=== PATIENT | male | born 1995 | race Caucasian/White ===

== ENCOUNTER 2020-03-24 10:11 | Emergency (ER) | payer MEDICAID, SELFPAY ==
[2020-03-24 10:24] VITALS: BP 145/85; PULSE 71; RESP 18; TEMP 36.6; O2SAT 98; BMI 25.8
--- NOTE | 2020-03-24 10:33 | HMH.EDUTC ---
[facility] Disposition Clinical Impression: Dental abscess Disposition: Home, Self-Care Condition on Discharge: Good Instructions: Tooth Abscess, DI for Tooth Abscess Additional Instructions: Take the medications as directed. You have to follow up with a dentist. You [facility] check with [facility] since you live in [place]. Their phone number is . Take ibuprofen for pain. I sent in a prescription for Ibuprofen 800 mg tablets. Follow up with your primary care doctor. GO TO THE ER FOR ANY WORSENING SYMPTOMS OR CONCERNS Prescriptions: Ibuprofen [Ibuprofen 800mg Tablet] 800 mg PO Q8HP PRN #30 tab PRN Reason: Moderate Pain Transmission Status: Pending to [facility] #[id number] Amoxicillin/Potassium Clav [Augmentin 875-125 Tablet] 1 tab PO Q12H 10 Days #20 tab Transmission Status: Pending to [facility] #[id number] Referrals: PCP,No [Primary Care Provider] - Time of Disposition: 10:35 Medical Decision Making - Medical Records Medical records reviewed: No: I reviewed the patient's medical records. - Reid Inquiry Pt receiving controlled substance: No Vital Signs: 03/24/20 10:24 Temperature 97.8 F Temperature Source Oral Pulse Rate [Right Brachial] 71 Respiratory Rate 18 Blood Pressure [Right Arm] 145/85 H Blood Pressure Mean [Right Arm] 105 Blood Pressure Source [Right Arm] Automatic Cuff Blood Pressure Position [Right Arm] Sitting 02 Sat by Pulse Oximetry 98 Oxygen Delivery Method Room Air [facility] HPI - General Stated complaint: bottom left tooth pain Time Seen by Provider: 03/24/20 10:33 Mode of Arrival: Ambulatory Source of Information: Patient Limitations: No Limitations Description of Symptoms (Recalled from Triage Doc. by RN): PATIENT C/O DENTAL PAIN X 2 DAYS HEENT Symptoms (Recalled from RN notes): Yes Resp Symptoms (Recalled from RN notes): No Skin Symptoms (Recalled from RN notes): No MS Symptoms (Recalled from RN notes): No Functional Status (Recalled from RN notes): WNL - History of Present Illness Provider Complaint: He c/o dental pain for the past week at least. He has a very badly decayed tooth in his left lower jaw. He has a dentist but he cannot get into see them yet. - Related Data Previous Rx's Medication Instructions Recorded Amoxicillin/Potassium Clav 1 tab PO Q12H 10 Days #20 tab 03/24/20 [Augmentin 875-125 Tablet] Ibuprofen [Ibuprofen 800mg 800 mg PO Q8HP PRN #30 tab 03/24/20 Tablet] Allergies Allergy/AdvReac Type Severity Reaction Status Date / Time No Known Allergies Allergy Verified 03/24/20 10:26 - Worker's Comp Is this a Worker's Comp case?: No [facility] History - Hepatitis A Screen Drug use history?: No High risk sexual behaviors?: No History of sexually transmitted infection?: No Currently employed?: No Childcare worker?: No Do you have indoor plumbing?: Yes Do you have electricity?: Yes Attestation statement:: This patient has been screened for Hepatitis A risk factors. I have reviewed the patient's past medical history: Yes Laterality Cases: Bilateral: Myringotomy (Ear Tubes) - Social History Smoking Status: Current every day smoker Tobacco Type: e-cigarettes # Packs/Day (cigarettes): 1 Alcohol Intake: never Alcohol Intake Frequency:: holidays/special occasions only Occupational Status: other Household Members: family ROS Obtained: Yes All systems reviewed & no additional complaints - Constitutional Constitutional: Denies chills, Denies fever(s) - Eyes Eyes: Denies change in vision, Denies eye discharge - ENT Ears, Nose, Mouth, and Throat: Reports as per HPI - Cardiovascular Cardiovascular: Denies chest pain - Respiratory Respiratory: No chest congestion, No cough Physical Exam - General General appearance: alert, in no apparent distress - Head Head exam: atraumatic, normocephalic, normal inspection - Eye Eye exam: Present: normal appearance, PERRL, EOMI
[2020-03-24 10:40] VITALS: BP 145/85; PULSE 71; RESP 18; TEMP 36.6; O2SAT 98
== END 2020-03-24 10:45 | disposition home or self-care (01) ==
PROVIDERS: Emergency Provider Nurse Practitioner Family
DX: K04.7 Periapical abscess without sinus (principal); F17.290 Nicotine dependence, other tobacco product, uncomplicated
CPT/HCPCS: 99201

== ENCOUNTER 2020-03-30 11:26 | Emergency (ER) | payer MEDICAID, SELFPAY ==
[2020-03-30 11:30] VITALS: BP 130/78; PULSE 76; RESP 19; TEMP 36.8; O2SAT 99; BMI 25.8
--- NOTE | 2020-03-30 12:00 | HMH.EDUTC ---
[facility] Disposition Clinical Impression: Encounter for laboratory testing for COVID-19 virus Disposition: Home, Self-Care Condition on Discharge: Good Instructions: DI for COVID-19 (Suspected or Confirmed ), Coronavirus Disease 2019, COVID-19: Testing and Tracing, Preventing the Spread of Coronavirus Discharge Instructions Additional Instructions: *Monitor Temp, Over the counter Motrin or Tylenol as directed/as needed Tylenol every 4 hours and Motrin every 6 hours (as long as your family doctor has told you that you can take it) for fever or pain. and straight to ER if unable to lower temp less than 101.0 after medication given *Warm salt water gargles may help to soothe the throat *Throat Lozenges *Warm fluids like tea with honey may help to soothe the throat *Sleep elevated *Humidifier/Vaporizer Follow up IMMEDIATELY for new or worsening symptoms or no Noticeable improvement over the next 48-72 hours. 911 for difficulty breathing or swallowing You were tested for today for COVID19 your test result should be back in the next 24-48 hours, you may call to the [facility] to see if your test results are back in the next 48 hours [phone] [facility] hours are 9am-9pm You was given a handout with instructions for Self Quarantine and Self isolation for while you wait on test results and what to do if they are positive If you are positive the Health Dept will be contacting you also Referrals: PCP,No [Primary Care Provider] - As needed Forms: Work/School Release Time of Disposition: 12:05 Medical Decision Making - Reid Inquiry Pt receiving controlled substance: No Reid was queried for this patient: No Vital Signs: 03/30/20 11:30 Temperature 98.2 F Temperature Source Oral Pulse Rate [Right Brachial] 76 Respiratory Rate 19 Blood Pressure [Right Arm] 130/78 Blood Pressure Mean [Right Arm] 95 Blood Pressure Source [Right Arm] Automatic Cuff Blood Pressure Position [Right Arm] Sitting 02 Sat by Pulse Oximetry 99 Oxygen Delivery Method Room Air Orders (Tests/Meds): ORDERS Category Date Time Status Covid-19 Nasal PCR Sendout [facility] Stat Lab 03/30/20 11:31 Ordered [facility] HPI - General Stated complaint: loss of smell and taste Time Seen by Provider: 03/30/20 12:00 Mode of Arrival: Ambulatory Source of Information: Patient Limitations: No Limitations Description of Symptoms (Recalled from Triage Doc. by RN): PATIENT REQUESTING COVID TEST; C/O LOSS OF TASTE AND SMELL HEENT Symptoms (Recalled from RN notes): Yes Resp Symptoms (Recalled from RN notes): No Skin Symptoms (Recalled from RN notes): No MS Symptoms (Recalled from RN notes): No Functional Status (Recalled from RN notes): WNL - History of Present Illness Provider Complaint: Patient states that he recently loss his sense of taste and smell States that he felt like he had a sinus infection a couple days ago and yesterday noticed that he was unable to smell or taste anything so today he was still unable to taste and smell so he come in to get tested - Related Data Previous Rx's Medication Instructions Recorded Amoxicillin/Potassium Clav 1 tab PO Q12H 10 Days #20 tab 03/24/20 [Augmentin 875-125 Tablet] Ibuprofen [Ibuprofen 800mg 800 mg PO Q8HP PRN #30 tab 03/24/20 Tablet] Allergies Allergy/AdvReac Type Severity Reaction Status Date / Time No Known Allergies Allergy Verified 03/24/20 10:26 - Worker's Comp Is this a Worker's Comp case?: No [facility] History - Hepatitis A Screen Drug use history?: No High risk sexual behaviors?: No History of sexually transmitted infection?: No Currently employed?: No Childcare worker?: No Do you have indoor plumbing?: Yes Do you have electricity?: Yes Attestation statement:: This patient has been screened for Hepatitis A risk factors. I have reviewed the patient's past medical history: Yes Laterality Cases: Bilateral: Myringotomy (Ear Tubes) - Social History Smoking Status: Current every day smoke
[2020-03-30 12:08] VITALS: BP 130/78; PULSE 76; RESP 19; TEMP 36.8; O2SAT 99
[2020-03-31 10:19] LABS: Covid-19 Nasal PCR Sendout P&C Positive
--- NOTE | 2020-04-01 12:38 | PC.NURSE ---
notified pt of positive results
== END 2020-03-30 12:10 | disposition home or self-care (01) ==
PROVIDERS: Emergency Provider Nurse Practitioner
DX: U07.1 COVID-19 (principal); F17.290 Nicotine dependence, other tobacco product, uncomplicated
CPT/HCPCS: 99201; U0004

== ENCOUNTER 2022-05-13 20:42 | Emergency (ER) | payer MEDICAID, SELFPAY ==
[2022-05-13 20:43] VITALS: BP 145/84; PULSE 101; RESP 16; TEMP 36.8; O2SAT 97; BMI 28.4
[2022-05-13 21:00] LABS: Basophils # 0.1 K/mm3 (0-0.2); Basophils % 0.9 % (0.1-2.0); Eosinophils # 0.2 K/mm3 (0.0-0.4); Eosinophils % 2.6 % (0.1-12.0); Hematocrit 49.2 % (42.0-52.0); Hemoglobin 16.5 g/dL (14.1-18.0); Lymphocytes # 1.6 K/mm3 (0.7-4.5); Lymphocytes % 18.9 % (10-50); Mean Corpuscular HGB Conc 33.6 g/dL (31.8-35.4); Mean Corpuscular Hemoglobin 31.2 pg (27.0-31.2); Mean Corpuscular Volume 92.9 fl (80-94); Mean Platelet Volume 8.7 fl (7.4-10.4); Monocytes # 0.2 K/mm3 (0.1-1.0); Monocytes % 2.5 % (1.7-9.3); Neutrophils # 6.3 K/mm3 (1.8-7.8); Platelet Count 243 K/mm3 (142-424); White Blood Count 8.4 K/mm3 (4.8-10.8)
[2022-05-13 21:09] LABS: Alanine Aminotransferase 28 U/L (12-78); Albumin Level 4.6 g/dl (3.5-5.0); Albumin/Globulin Ratio 1.5 (1.1-1.8); Alkaline Phosphatase 125 U/L (38-126); Anion Gap 9.4 mEq/L (5-15); Aspartate Amino Transferase 29 U/L (17-59); Bilirubin,Total 0.5 mg/dl (0.2-1.3); Blood Urea Nitrogen 17 mg/dl (9-20); Calcium 8.7 mg/dl (8.4-10.2); Carbon Dioxide 27 mmol/L (22.0-30.0); Chloride 105 mmol/L (98-107); Creatinine Clearance Estimated 192 mL/min (50-200); Estimated Glomerular Filt Rate 102 ml/min (>60); GFR (African American) 123 ML/MIN (>60); Glucose 213 mg/dl (74-100); Potassium 3.4 mmoL/L (3.5-5.1); Sodium 138 mmol/L (136-145); Total Protein,Serum 7.6 g/dl (6.3-8.2)
--- NOTE | 2022-05-13 22:27 | HMH.EDWNDL ---
Discharge Plan Disposition Patient Disposition: Home, Self-Care Prescriptions Prescriptions: New sulfamethoxazole-trimethoprim [Bactrim DS] 800-160 mg Tablet 1 tab PO Q12H Qty: 14 0RF cephalexin [cephalexin] 500 mg capsule 500 mg PO TID Qty: 30 0RF No Action amoxicillin-pot clavulanate 1 EACH tablet 1 tab PO Q12H 10 Days Qty: 20 0RF ibuprofen 800 MG tablet 800 mg PO Q8HP PRN (Reason: Moderate Pain) Qty: 30 0RF Referrals Follow up/Referrals: Provider,Referral, MD [Primary Care Provider] - See instructions Norma Alcaraz DPM [Staff Physician] - See instructions Clinical Impressions Clinical Impression: Cellulitis, OC (onychocryptosis) Instructions Patient Instructions: Cellulitis, DI for Ingrown Toenail Discharge ED Provider: Mukesh (ED)Dallin Wound/Laceration HPI General Chief Complaint: Wound/Laceration Stated Complaint: Left big toe infected Time Seen by Provider: 05/13/22 22:27 Mode of Arrival: Ambulatory Source of Information: Patient and Medical Record Limitations: No Limitations Description of Symptoms (Recalled from ER Triage Doc. by RN): pt to ED with redness and swelling in his left great toe x 3 weeks. pt denies any fevers, aches or chills. History of Present Illness HPI narrative: infection lt great toe over the last few weeks - pt is not diabetic - Onset (ago): week(s) Extremity Location: Left: foot Place: home Associated symptoms: none Related Data Previous Rx's Medication Instructions Recorded amoxicillin 875 mg-potassium 1 tab PO Q12H 10 days #20 tabs 03/24/20 clavulanate 125 mg tablet ibuprofen 800 mg tablet 800 mg PO Q8HP PRN Moderate Pain 03/24/20 #30 tabs cephalexin 500 mg capsule 500 mg PO TID #30 caps 05/13/22 sulfamethoxazole 800 1 tab PO Q12H #14 tabs 05/13/22 mg-trimethoprim 160 mg tablet (Bactrim DS) Allergies Allergy/AdvReac Type Severity Reaction Status Date / Time No Known Allergies Allergy Verified 03/24/20 10:26 PFS PFS Disclaimer: The information contained in this section may have been updated after the patient was seen, as this information can be updated by other users. Social History Smoking Status: Light tobacco smoker tobacco type: e-cigarettes alcohol intake: never current occupational status: other Travel in the last 8 weeks: None household members: family ROS Obtained: Yes All systems reviewed & no additional complaints except as documented Physical Exam General General appearance: alert Head Head exam: normocephalic Eye Eye exam: Present PERRL and EOMI ENT ENT exam: Present mucous membranes moist Neck Neck exam: Present trachea midline Respiratory Respiratory exam: Absent respiratory distress Cardiovascular Cardiovascular exam: Present regular rate Expanded Lower Extremity Exam Left: Foot/toe exam: Present tenderness and other (has infected lt great toe consistent with ingrown toe nail) Neurovascular/Tendon exam: Present pulse deficit Neurological Exam Neurological exam: Present alert, oriented X3 and CN II-XII intact Psychiatric Psychiatric exam: Present normal affect Skin Skin exam: Present other (lt great toe has infected ingrown toe nail); Absent rash Medical Decision Making Medical Records Medical records reviewed: Yes I reviewed the patient's medical records. Reid Inquiry Pt receiving controlled substance: No Vital Signs: 05/13/22 20:43 Temperature 98.2 F Temperature Source Oral Pulse Rate [Left Radial] 101 H Respiratory Rate 16 Blood Pressure [Right Arm] 145/84 H Blood Pressure Mean [Right Arm] 104 Blood Pressure Source [Right Arm] Automatic Cuff Blood Pressure Position [Right Arm] Sitting 02 Sat by Pulse Oximetry 97 Oxygen Delivery Method Room Air Lab Data Lab results reviewed: Yes I reviewed the patient's lab results. Lab Results 05/13/22 20:50: WBC 8.4, RBC 5.30, Hgb 16.5, Hct 49.2, MCV 92.9, MCH 31.2, MCHC 33.6, RDW 13.0, Plt Count 243, MP
[2022-05-13 22:47] LABS: Hemoglobin A1C 5.1 % (4.0-6.0)
--- NOTE | 2022-05-13 22:52 | PC.NURSE ---
called pt to give A1C results.
[2022-05-13 22:53] VITALS: BP 135/80; PULSE 81; RESP 18; TEMP 36.7; O2SAT 98
== END 2022-05-13 22:55 | disposition home or self-care (01) ==
PROVIDERS: Emergency Provider Emergency Medicine
DX: L03.032 Cellulitis of left toe (principal); L60.2 Onychogryphosis; F17.299 Nicotine dependence, other tobacco product, with unspecified nicotine-induced disorders
CPT/HCPCS: 80053; 83036; 85025; 99284

== ENCOUNTER → 2022-05-14 23:40 | Outpatient (CLI) | payer MEDICAID, SELFPAY | PROVIDERS: PCP Nurse Practitioner Family; Visit Provider Nurse Practitioner Family | DX: L03.031 Cellulitis of right toe (principal); L03.90 Cellulitis, unspecified; B95.7 Other staphylococcus as the cause of diseases classified elsewhere | CPT/HCPCS: 87070; 87077; 87186; 87205 ==

== ENCOUNTER → 2022-06-18 13:21 | Outpatient (CLI) | payer MEDICAID, SELFPAY ==
--- NOTE | 2022-06-18 13:30 | XR_ITS ---
FINAL REPORT CLINICAL HISTORY: hx of pneumothorax FINDINGS: 2 views of the chest were obtained . The heart is normal in size. The mediastinum is within normal limits. The lungs are clear. There is no pneumothorax. Osseous structures are unremarkable. IMPRESSION: No acute cardiopulmonary process. Reviewed, Interpreted and Dictated by Willi Mayer MD Transcribed by Merary Bateman Authenticated and [facility]
== END ==
PROVIDERS: PCP Family Medicine; Visit Provider Family Medicine
DX: Z87.09 Personal history of other diseases of the respiratory system (principal)
CPT/HCPCS: 71046

== ENCOUNTER 2022-07-17 19:09 | Emergency (ER) | payer MEDICAID, SELFPAY ==
--- NOTE | 2022-07-17 19:05 | ECG_ITS ---
APPROVED REPORT Exam: Resting ECG HR:89 bpm ECG Measurements Heart Rate 89 AXES OK 149 P 48 QRSd 92 QRS 73 QT 320 T 34 QTc 367 Conclusion SINUS RHYTHM NONSPECIFIC T-WAVE ABNORMALITY BORDERLINE ECG UNCONFIRMED REPORT Electronically signed by : Josué Fan MD 07/20/2022 14:32:00
[2022-07-17 19:10] VITALS: BP 148/89; PULSE 97; RESP 17; TEMP 36.5; O2SAT 99; BMI 29.6
--- NOTE | 2022-07-17 19:17 | CT_ITS ---
PROCEDURE INFORMATION: Exam: CTA Chest With Contrast Exam date and time: 07/17/2022 7:48 PM Age: 26 years old Clinical indication: Patient HX: Chest pressure, possible marfan's syndrome per patient. Patient stated insurance would not cover testing for marfan's. ; Additional info: Chest pain TECHNIQUE: Imaging protocol: Computed tomographic angiography of the chest with contrast. 3D rendering (Not supervised by radiologist): MIP and/or 3D reconstructed images were created by the technologist. Radiation optimization: All CT scans at this facility use at least one of these dose optimization techniques: automated exposure control; mA and/or kV adjustment per patient size (includes targeted exams where dose is matched to clinical indication); or iterative reconstruction. Contrast material: ISOVUE 370; Contrast volume: 70 ml; Contrast route: INTRAVENOUS (IV); REPORTING DATA: Count of CT and Cardiac NM exams in prior 12 months: This patient has received 0 known CTs and 0 known cardiac nuclear medicine studies in the 12 months prior to the current study. COMPARISON: CR XR CHEST 2V 18/06/2022 13:32 FINDINGS: Pulmonary arteries: Normal. No pulmonary emboli. Aorta: No aortic dissection. No aortic aneurysm. Renal arteries: Accessory right renal artery. Lungs: Unremarkable. No consolidation. No masses. Pleural spaces: Unremarkable. No pneumothorax. No pleural effusion. Heart: Unremarkable. No cardiomegaly. No pericardial effusion. Lymph nodes: Unremarkable. No enlarged lymph nodes. Bones/joints: Unremarkable. No acute fracture. Soft tissues: Unremarkable. IMPRESSION: No aortic dissection. No aortic aneurysm.
--- NOTE | 2022-07-17 19:17 | XR_ITS ---
PROCEDURE INFORMATION: Exam: XR Chest Exam date and time: 07/17/2022 7:53 PM Age: 26 years old Clinical indication: Pain; Chest pressure; Additional info: Chest pain TECHNIQUE: Imaging protocol: Radiologic exam of the chest. Views: 1 view. Portable upright chest x-ray. COMPARISON: 1. CT ANGIO CHEST PE PROTOCOL 07/17/2022 7:48 PM 2. CR CXR CHEST(2 VIEWS-NOT PORTABLE) 02/05/2016 2:47 AM FINDINGS: Lungs: No consolidation or lung nodules. Pleural spaces: No pleural effusion. No pneumothorax. Heart/Mediastinum: No abnormalities. No cardiomegaly. No pulmonary vascular congestion. Bones/joints: No fractures or bone lesions. IMPRESSION: No acute findings in the chest. No change since 02/05/2016.
[2022-07-17 19:30] LABS: Basophils % 0.2 % (0.1-2.0); Eosinophils # 0.2 K/mm3 (0.0-0.4); Eosinophils % 1.8 % (0.1-12.0); Hematocrit 48.9 % (42.0-52.0); Lymphocytes # 1.7 K/mm3 (0.7-4.5); Lymphocytes % 15.9 % (10-50); Mean Corpuscular HGB Conc 32.8 g/dL (31.8-35.4); Mean Corpuscular Volume 94.5 fl (80-94); Mean Platelet Volume 9.1 fl (7.4-10.4); Monocytes # 0.5 K/mm3 (0.1-1.0); Monocytes % 4.5 % (1.7-9.3); Neutrophils # 8.3 K/mm3 (1.8-7.8); Neutrophils % 77.6 % (37.0-80.0); Platelet Count 223 K/mm3 (142-424); Red Blood Count 5.17 M/mm3 (4.60-6.20); Red Cell Distribution Width 13.5 % (11.5-17.5); White Blood Count 10.7 K/mm3 (4.8-10.8)
--- NOTE | 2022-07-17 19:38 | PC.NURSE ---
PATIENT GONE TO RAD AT THIS TIME.
[2022-07-17 19:41] LABS: Anion Gap 11.4 mEq/L (5-15); Blood Urea Nitrogen 23 mg/dl (9-20); Calcium 8.8 mg/dl (8.4-10.2); Carbon Dioxide 26 mmol/L (22.0-30.0); Chloride 104 mmol/L (98-107); Creatinine Clearance Estimated 163 mL/min (50-200); Estimated Glomerular Filt Rate 81 ml/min (>60); GFR (African American) 98 ML/MIN (>60); Glucose 95 mg/dl (74-100); Potassium 3.4 mmoL/L (3.5-5.1); Sodium 138 mmol/L (136-145)
[2022-07-17 19:46] LABS: C-Reactive Protein 2.7 mg/L (0-4)
[2022-07-17 19:57] LABS: T4 (Thyroxine) 7.9 ug/dl (5.53-11.0)
[2022-07-17 20:11] LABS: Thyroid Stimulating Hormone 2.35 uIU/mL (0.465-4.68)
[2022-07-17 20:17] LABS: Troponin I < 0.01 ng/ml (0.00-0.034)
[2022-07-17 20:26] LABS: Erythrocyte Sedimentation Rate 2 mm/hr (0-15)
--- NOTE | 2022-07-17 22:08 | HMH.EDCP ---
Discharge Plan Disposition Patient Disposition: Home, Self-Care Chief Complaint: Chest Pain Prescriptions Prescriptions: No Action aripiprazole 15 mg tablet 15 mg PO DAILY venlafaxine 150 mg capsule,extended release 24hr 150 mg PO DAILY hydroxyzine HCl 25 mg tablet 25 mg PO HS Referrals Follow up/Referrals: Mariely Hernandez DO [Primary Care Provider] - See instructions Clinical Impressions Clinical Impression: Atypical chest pain Instructions Patient Instructions: DI for Atypical Chest Pain Discharge ED Provider: Mukesh (ED)Dallin Chest Pain HPI General Chief Complaint: Chest Pain Stated Complaint: chest pain Time Seen by Provider: 07/17/22 22:09 Mode of Arrival: Family Vehicle Source of Information: Patient and Medical Record Limitations: No Limitations Description of Symptoms (Recalled from ER Triage Doc. by RN): 26 yo male presents with cc of left anterior chest pain that began approximately 3 hours ago. 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 patient denies n/v/d. denies diaphoresis. States he became somewhat near-syncopal at one point. patient has a PMH of anxiety/depression. Drinks energy drinks daily. Is currently in the process of being diagnosed with marfan's syndrome however insurance is an issue History of Present Illness HPI narrative: onset of lt ant chest pain and felt dizzy and he before that was talking out of control w/o speech or visual sx - no other c/o - hx of possible marfans complaint: chest pain Onset (ago): hour(s) Duration: now resolved Activity at onset: during rest Pain location: left chest Severity: moderate Quality: aching Risk Factors for CAD: Family Hx of CAD Treatments prior to or on arrival for Cardiac Chest Pain: none LOREN Score for Non-Stemi Age of Patient: <30 years old Heart Rate: 70-89 bpm Systolic Blood Pressure: 140-159 mmHg Serum Creatinine: 0.80-1.19 mg/dl CHF [place] Class: I-No CHF Other Risk Factors: None Non-Stemi Risk Score: 40 Risk Stratification: 1-108 = Low Risk Related Data Home Medications Medication Instructions Recorded Confirmed aripiprazole 15 mg tablet 15 mg PO DAILY 06/18/22 06/18/22 hydroxyzine HCl 25 mg tablet 25 mg PO HS 03/20/23 03/20/23 venlafaxine 150 mg 150 mg PO DAILY 06/18/22 06/18/22 capsule,extended release 24 hr Allergies Allergy/AdvReac Type Severity Reaction Status Date / Time No Known Allergies Allergy Verified 06/18/22 12:54 [facility] Disclaimer: The information contained in this section may have been updated after the patient was seen, as this information can be updated by other users. Medical History (Updated 07/17/22 @ 23:01 by Dallin Mayorga (DENNY)MD) Lung collapse Surgical History (Updated 06/18/22 @ 12:58 by Nancy Cummings LPN) H/O tooth extraction History of lung surgery Family History (Updated 05/14/22 @ 14:51 by Olivia Bhatia CMA) Mother Anemia Asthma Thyroid disorder Father Alcoholism Substance abuse Grandfather Cancer Coronary artery disease Diabetes Hypertension Social History (Updated 06/18/22 @ 12:59 by Nancy Cummings LPN) Smoking Status: Never smoker years smoked: 10 alcohol intake: current substance use type: denies use current occupational status: employed Travel in the last 8 weeks: None household members: family ROS Obtained: Yes All systems reviewed & no additional complaints except as documented Physical Exam General General appearance: alert Head Head exam: normocephalic Eye Eye exam: Present PERRL and EOMI ENT ENT exam: Present mucous membranes moist Neck Neck exam: Present trachea midline Chest Chest inspection: Present normal inspection Respiratory Respiratory exam: Present normal lung sounds bilaterally Cardiovascular Cardiovascular exam: Present regular rate; Absent systolic murmur, rubs, gallop,
[2022-07-17 22:52] LABS: Troponin I < 0.01 ng/ml (0.00-0.034)
[2022-07-17 23:01] VITALS: BP 137/81; PULSE 81; PULSE 97; RESP 16; TEMP 36.5; O2SAT 99
== END 2022-07-17 23:02 | disposition home or self-care (01) ==
PROVIDERS: Emergency Provider Emergency Medicine; PCP Family Medicine
DX: R07.89 Other chest pain (principal); R42 Dizziness and giddiness
CPT/HCPCS: 71045; 71275; 80048; 84436; 84443; 84484; 85025; 85651; 86140; 93005; 99285; Q9967

== ENCOUNTER → 2023-01-09 15:18 | Outpatient (CLI) | payer MEDICAID, SELFPAY ==
--- NOTE | 2023-01-09 15:23 | XR_ITS ---
FINAL REPORT CLINICAL HISTORY: pain, swelling without injury FINDINGS: LEFT FOOT Three views of the left foot demonstrate a fracture of the second metatarsal diaphysis. The visualized joint spaces are normally aligned. The soft tissues are unremarkable. IMPRESSION: Fracture of the second metatarsal diaphysis. Reviewed, Interpreted and Dictated by Davis Grissom III, MD Transcribed by Merary Bateman Authenticated and [facility]
== END ==
PROVIDERS: Visit Provider Nurse Practitioner Family
DX: M79.672 Pain in left foot (principal); M79.89 Other specified soft tissue disorders
CPT/HCPCS: 73630

== ENCOUNTER → 2023-01-28 10:57 | Outpatient (CLI) | payer MEDICAID, SELFPAY ==
--- NOTE | 2023-01-28 11:04 | XR_ITS ---
FINAL REPORT CLINICAL HISTORY: Left foot 2nd met FX COMPARISON: 01/09/2023 FINDINGS: LEFT FOOT: Three views of the left foot were obtained. There is a subacute fracture of the second metatarsal diaphysis with callus formation since prior exam. There is no acute fracture or dislocation. The joint spaces are intact. There is no soft tissue abnormality. IMPRESSION: No acute bony abnormality. Second metatarsal diaphysis fracture with evidence of healing. Reviewed, Interpreted and Dictated by Davis Grissom III, MD Transcribed by Elvira Lawson Authenticated and . [facility]
== END ==
PROVIDERS: PCP Emergency Medicine; Visit Provider Nurse Practitioner Family
DX: M79.672 Pain in left foot (principal)
CPT/HCPCS: 73630

== ENCOUNTER → 2023-02-11 10:04 | Outpatient (CLI) | payer MEDICAID, SELFPAY ==
--- NOTE | 2023-02-11 10:11 | XR_ITS ---
FINAL REPORT CLINICAL HISTORY: fracture follow up COMPARISON: 01/28/2023 FINDINGS: LEFT FOOT Three views of the left foot demonstrate a healing fracture of the distal second metatarsal. Fracture line is visible. No new fractures identified. Soft tissues are unremarkable. IMPRESSION: Healing fracture of the distal second metatarsal. Reviewed, Interpreted and Dictated by Willi Mayer MD Transcribed by Merary Bateman Authenticated and [facility]
== END ==
PROVIDERS: PCP Emergency Medicine; Visit Provider Podiatrist
DX: M79.89 Other specified soft tissue disorders (principal); S92.302A Fracture of unspecified metatarsal bone(s), left foot, initial encounter for closed fracture
CPT/HCPCS: 73630

== ENCOUNTER → 2023-03-04 09:58 | Outpatient (CLI) | payer MEDICAID, SELFPAY ==
--- NOTE | 2023-03-04 10:02 | XR_ITS ---
FINAL REPORT CLINICAL HISTORY: foot pain, fracture of 2nd met COMPARISON: 02/11/2023 FINDINGS: LEFT FOOT: Three views of the left foot were obtained. There is a subacute fracture of the second metatarsal diaphysis. There is increased callus formation noted since the prior films of February 11 at the fracture site. The joint spaces are intact. There is no soft tissue abnormality. IMPRESSION: Subacute healing fracture of the second metatarsal diaphyseal fracture, with increasing callus at the fracture site since February 11. Reviewed, Interpreted and Dictated by Davis Grissom III, MD Transcribed by Crista Carrillo Authenticated and . [facility]
== END ==
PROVIDERS: PCP Nurse Practitioner Family; Visit Provider Podiatrist
DX: S92.322D Displaced fracture of second metatarsal bone, left foot, subsequent encounter for fracture with routine healing (principal)
CPT/HCPCS: 73630

== ENCOUNTER → 2023-03-18 08:48 | Outpatient (CLI) | payer MEDICAID, SELFPAY ==
--- NOTE | 2023-03-18 09:01 | XR_ITS ---
FINAL REPORT TECHNIQUE: Left foot 3 views CLINICAL HISTORY: foot pain COMPARISON: 03/04/2023 FINDINGS: LEFT FOOT Three views of the left foot demonstrate no acute fracture or dislocation. There is progressive bridging callus at the level of the distal second metatarsal fracture noted on the prior exam, with continued increase in fracture healing. The visualized joint spaces are normally aligned. The soft tissues are unremarkable. IMPRESSION: Progressive bridging callus and healing noted in a fracture of the distal second metatarsal. Reviewed, Interpreted and Dictated by Willi Mayer MD Transcribed by Crista Carrillo Authenticated and [facility]
== END ==
PROVIDERS: Visit Provider Podiatrist
DX: S92.302D Fracture of unspecified metatarsal bone(s), left foot, subsequent encounter for fracture with routine healing (principal)
CPT/HCPCS: 73630

== ENCOUNTER 2023-04-21 10:06 | Emergency (ER) | payer MEDICAID, SELFPAY ==
[2023-04-21 10:20] VITALS: BP 141/81; PULSE 70; RESP 19; TEMP 36.9; O2SAT 100; BMI 29.9
--- NOTE | 2023-04-21 10:40 | ED_ITS ---
Discharge Plan Disposition Patient Disposition: Home, Self-Care Condition: Good Prescriptions Prescriptions: No Action aripiprazole 15 mg tablet 15 mg PO DAILY indomethacin 50 mg capsule 50 mg PO TID 10 Days Qty: 30 0RF Rx Instructions: administer with food or milk escitalopram oxalate [Lexapro] 10 mg tablet 10 mg PO DAILY Referrals Follow up/Referrals: Provider,Referral, MD [Primary Care Provider] - See instructions Activity Restrictions/Add. Instructions Additional Instructions/Restrictions: *Monitor Temp, Over the counter Motrin or Tylenol as directed/as needed Tylenol every 4 hours and Motrin every 6 hours (as long as your family doctor has told you that you can take it) for fever or pain. and straight to ER if unable to lower temp less than 101.0 after medication given *Sleep elevated *Humidifier/Vaporizer Follow up IMMEDIATELY for new or worsening symptoms or no Noticeable improvement over the next 48-72 hours. 911 for difficulty breathing or swallowing You were tested for today for Upper Respiratory Panel with COVID19 your test result should be back in the next 24hours, you may check your results on the [facility] [employer] [facility] Clinical Impressions Clinical Impression: Encounter for laboratory testing for COVID-19 virus Instructions Patient Instructions: COVID-19 Viral Test Discharge ED Provider: Luly Urban [facility] [place] HPI General Stated complaint: congestion, sneezing Mode of Arrival: Ambulatory Source of Information: Patient Limitations: No Limitations Time Seen by Provider: 04/21/23 10:40 Description of Symptoms (Recalled from Triage Doc. by RN): PATIENT REQUESTING COVID TEST D/T SECONDARY EXPOSURE AND STATES HIS FOOD TASTES FUNNY HEENT Symptoms (Recalled from RN notes): No Resp Symptoms (Recalled from RN notes): No Skin Symptoms (Recalled from RN notes): No MS Symptoms (Recalled from RN notes): No Functional Status (Recalled from RN notes): WNL History of Present Illness Provider Complaint: Patient states that his cousin has COVID and his grandmother was around him and today he was eating some chips and noticed they taste funny and that is what he did the last time he had COVID so he came in to get a COVID test Related Data Home Medications Medication Instructions Recorded Confirmed aripiprazole 15 mg tablet 15 mg PO DAILY 06/18/22 03/18/23 escitalopram oxalate 10 mg tablet 10 mg PO DAILY 01/28/23 03/18/23 (Lexapro) Previous Rx's Medication Instructions Recorded indomethacin 50 mg capsule 50 mg PO TID 10 days #30 caps 01/09/23 Allergies Allergy/AdvReac Type Severity Reaction Status Date / Time No Known Allergies Allergy Verified 03/18/23 09:13 Worker's Comp Is this a Worker's Comp case?: No [facility] Disclaimer: The information contained in this section may have been updated after the patient was seen, as this information can be updated by other users. Medical History Atypical chest pain History of pneumothorax Lung collapse x 3 1 on left and 2x on right Surgical History H/O tooth extraction History of lung surgery Family History Mother Anemia Asthma Thyroid disorder Father Alcoholism Substance abuse Grandfather Cancer Coronary artery disease Diabetes Hypertension Social History Smoking Status: Never smoker years smoked: 10 alcohol intake: current substance use type: denies use current occupational status: employed Travel in the last 8 weeks: None household members: family ROS Obtained: Yes All systems reviewed & no additional complaints except as documented and Yes Systems reviewed as appropriate & no additional complaints except as documented Constitutional Constitutional: Reports system reviewed and no additional complaints, except as documented and Reports as per HPI ENT Ears, Nose, Mouth, and Throat: Reports system reviewed and no additional complaints, except as documented and Reports as per HPI Cardiovascular Cardiovascular: Reports system reviewed and no additional complaints, except as documented and Reports as per HPI Respiratory Respiratory: Reports system reviewed and no additional complaints, except as documented and Reports as per HPI Gastrointestinal Gastrointestingal: Reports system reviewed and no additional complaints, except as documented and as per HPI Musculoskeletal Musculoskeletal: Reports system reviewed and no additional complaints, except as documented and Reports as per HPI Physical Exam General General appearance: alert and in no apparent distress ENT ENT exam: Present mucous membranes moist Expanded ENT Exam Nose exam: Absent sinus tenderness Throat exam: Present normal inspection Respiratory Respiratory exam: Present normal lung sounds bilaterally; Absent respiratory distress or wheezes Cardiovascular Cardiovascular exam: Present regular rate, normal rhythm and normal heart sounds Neurological Exam Neurological exam: Present alert, oriented X3 and normal gait Medical Decision Making Reid Inquiry Pt receiving controlled substance: No Reid was queried for this patient: No Vital Signs: 04/21/23 10:20 Temperature 98.4 F Temperature Source Oral Pulse Rate [Left Brachial] 70 Respiratory Rate 19 Blood Pressure [Left Arm] 141/81 H Blood Pressure Mean [Left Arm] 101 Blood Pressure Source [Left Arm] Automatic Cuff Blood Pressure Position [Left Arm] Sitting 02 Sat by Pulse Oximetry 100 Oxygen Delivery Method Room Air Orders (Tests/Meds): ORDERS Category Date Time Status Covid-19 Nasal PCR ([facility]) Routine Lab 04/21/23 10:10 Received
[2023-04-21 10:57] VITALS: BP 141/81; PULSE 70; RESP 19; TEMP 36.9; O2SAT 100
== END 2023-04-21 10:59 | disposition home or self-care (01) ==
PROVIDERS: Emergency Provider Nurse Practitioner
DX: Z20.822 Contact with and (suspected) exposure to COVID-19 (principal)
CPT/HCPCS: 87635; 99202; 99212; G0463

== ENCOUNTER 2023-05-09 11:02 | Emergency (ER) | payer MEDICAID, SELFPAY ==
[2023-05-09 11:35] VITALS: BP 116/80; PULSE 89; RESP 18; TEMP 36.8; O2SAT 98; BMI 31.8
--- NOTE | 2023-05-09 11:49 | EXP.UTC ---
Discharge Plan Disposition Patient Disposition: Home, Self-Care Condition: Good Prescriptions Prescriptions: New mupirocin 2 % ointment 1 applic topical TID Qty: 22 0RF Rx Instructions: apply to skin around left great toenail sulfamethoxazole-trimethoprim [Bactrim DS] 800-160 mg tablet 1 tab PO Q12H Qty: 20 0RF No Action aripiprazole 15 mg tablet 15 mg PO DAILY escitalopram oxalate [Lexapro] 10 mg tablet 10 mg PO DAILY hydroxyzine HCl 25 mg tablet 25 mg PO DAILY Referrals Follow up/Referrals: Flako Jules DO [Primary Care Provider] - See instructions Activity Restrictions/Add. Instructions Additional Instructions/Restrictions: Soak foot in warm water and epson salt 3-4 times daily and pat dry Wear box toe shoes so not to croud toes in the shoe apply topical antibiotic on skin around toenail Take oral antibiotics as prescribed Follow up with Podiatry as scheduled Clinical Impressions Clinical Impression: Ingrowing toenail with infection Instructions Patient Instructions: DI for Infected Ingrown Toenail, Trimethoprim/Sulfamethoxazole (Alternative Therapy), Mupirocin Discharge ED Provider: Luly Urban [facility] [place] HPI General Stated complaint: left toe infected Mode of Arrival: Ambulatory Source of Information: Patient Limitations: No Limitations Time Seen by Provider: 05/09/23 11:50 Description of Symptoms (Recalled from Triage Doc. by RN): Pt's left great toe has an ingrown toe nail. HEENT Symptoms (Recalled from RN notes): No Resp Symptoms (Recalled from RN notes): No Skin Symptoms (Recalled from RN notes): No MS Symptoms (Recalled from RN notes): No Functional Status (Recalled from RN notes): n/a History of Present Illness Provider Complaint: Patient states that he has a hx of ingrown toe nails States that he has been having redness and swelling on the side of his left great toe States that it has been draining some and red and swollen States that he has appointment with Podiatry on the but wanted to get some antibiotics so the infection would be clear and they can cut it out Related Data Home Medications Medication Instructions Recorded Confirmed aripiprazole 15 mg tablet 15 mg PO DAILY 06/18/22 05/09/23 escitalopram oxalate 10 mg tablet 10 mg PO DAILY 01/28/23 05/09/23 (Lexapro) hydroxyzine HCl 25 mg tablet 25 mg PO DAILY 05/09/23 05/09/23 Previous Rx's Medication Instructions Recorded mupirocin 2 % topical ointment 1 applic topical TID #22 grams 05/09/23 sulfamethoxazole 800 1 tab PO Q12H #20 tabs 05/09/23 mg-trimethoprim 160 mg tablet (Bactrim DS) Allergies Allergy/AdvReac Type Severity Reaction Status Date / Time No Known Allergies Allergy Verified 05/09/23 11:49 Worker's Comp Is this a Worker's Comp case?: No [facility] Disclaimer: The information contained in this section may have been updated after the patient was seen, as this information can be updated by other users. Medical History Atypical chest pain History of pneumothorax Lung collapse x 3 1 on left and 2x on right Surgical History H/O tooth extraction History of lung surgery Family History Mother Anemia Asthma Thyroid disorder Father Alcoholism Substance abuse Grandfather Cancer Coronary artery disease Diabetes Hypertension Social History Smoking Status: Never smoker years smoked: 10 alcohol intake: current substance use type: denies use current occupational status: employed Travel in the last 8 weeks: None household members: family ROS Obtained: Yes All systems reviewed & no additional complaints except as documented and Yes Systems reviewed as appropriate & no additional complaints except as documented Constitutional Constitutional: Reports system reviewed and no additional complaints, except as documented and Reports as per HPI ENT Ears, Nose, Mouth, and Throat: Reports system reviewed and no additional complaints, except as documented and Reports as per HPI Cardiovascular Cardiovascular: Reports system reviewed and no additional complaints, except as documented and Reports as per HPI Respiratory Respiratory: Reports system reviewed and no additional complaints, except as documented and Reports as per HPI Gastrointestinal Gastrointestingal: Reports system reviewed and no additional complaints, except as documented and as per HPI Musculoskeletal Musculoskeletal: Reports system reviewed and no additional complaints, except as documented and Reports as per HPI Integumentary/Breasts Skin/Breast: Reports system reviewed and no additional complaints, except as documented and Reports as per HPI Comments: redness swelling and drianage to left great toenail with hx of ingrown toenail Physical Exam General General appearance: alert and in no apparent distress Respiratory Respiratory exam: Present normal lung sounds bilaterally; Absent respiratory distress or wheezes Cardiovascular Cardiovascular exam: Present regular rate, normal rhythm and normal heart sounds Expanded Lower Extremity Exam Left: Top foot image: 1. redness and swelling noted with dried blood around nail on toe and discharge noted on sock Neurological Exam Neurological exam: Present alert, oriented X3 and normal gait Medical Decision Making Reid Inquiry Pt receiving controlled substance: No Reid was queried for this patient: No Vital Signs: 05/09/23 11:35 Temperature 98.3 F Temperature Source Oral Pulse Rate [Right Radial] 89 Respiratory Rate 18 Blood Pressure [Right Arm] 116/80 Blood Pressure Mean [Right Arm] 92 Blood Pressure Source [Right Arm] Automatic Cuff Blood Pressure Position [Right Arm] Sitting 02 Sat by Pulse Oximetry 98 Oxygen Delivery Method Room Air
[2023-05-09 12:00] VITALS: BP 116/80; PULSE 89; RESP 18; TEMP 36.8; O2SAT 98
== END 2023-05-09 12:00 | disposition home or self-care (01) ==
PROVIDERS: Emergency Provider Nurse Practitioner; PCP Internal Medicine
DX: L08.9 Local infection of the skin and subcutaneous tissue, unspecified (principal); L60.0 Ingrowing nail
CPT/HCPCS: 99212; 99214; G0463

== ENCOUNTER 2023-08-23 09:34 | Outpatient (CLI) | payer MEDICAID, SELFPAY ==
[2023-08-23 18:23] LABS: Basophils # 0.1 K/mm3 (0-0.2); Basophils % 0.6 % (0.1-2.0); Eosinophils # 0.2 K/mm3 (0.0-0.4); Eosinophils % 2.7 % (0.1-12.0); Hematocrit 45.7 % (42.0-52.0); Hemoglobin 14.9 g/dL (14.1-18.0); Lymphocytes # 1.9 K/mm3 (0.7-4.5); Lymphocytes % 25.6 % (10-50); Mean Corpuscular HGB Conc 32.7 g/dL (31.8-35.4); Mean Corpuscular Hemoglobin 31.5 pg (27.0-31.2); Mean Corpuscular Volume 96.3 fl (80-94); Mean Platelet Volume 9.6 fl (7.4-10.4); Monocytes # 0.2 K/mm3 (0.1-1.0); Monocytes % 3.1 % (1.7-9.3); Platelet Count 219 K/mm3 (142-424); Red Blood Count 4.75 M/mm3 (4.60-6.20); Red Cell Distribution Width 13.7 % (11.5-17.5); White Blood Count 7.3 K/mm3 (4.8-10.8)
[2023-08-23 18:30] LABS: Alanine Aminotransferase 28 U/L (12-78); Albumin Level 4.3 g/dl (3.5-5.0); Albumin/Globulin Ratio 1.5 (1.1-1.8); Alkaline Phosphatase 100 U/L (38-126); Anion Gap 17.9 mEq/L (5-15); Aspartate Amino Transferase 29 U/L (17-59); Bilirubin,Total 0.7 mg/dl (0.2-1.3); Blood Urea Nitrogen 15 mg/dl (9-20); Calcium 9.4 mg/dl (8.4-10.2); Carbon Dioxide 23 mmol/L (22.0-30.0); Chloride 103 mmol/L (98-107); Chol/HDL Ratio 3.8 (1-3.5); Cholesterol 199 mg/dl (140-200); Estimated Glomerular Filt Rate 101 ml/min (>60); GFR (African American) 122 ML/MIN (>60); Globulin 2.9 g/dL (1.3-3.2); Glucose 160 mg/dl (74-100); HDL Cholesterol 53 mg/dl (40-60); Potassium 3.9 mmoL/L (3.5-5.1); Sodium 140 mmol/L (136-145); Total Protein,Serum 7.2 g/dl (6.3-8.2); Triglycerides 128 mg/dl (30-150); VLDL Cholesterol 26 mg/dL (0-40)
[2023-08-23 18:42] LABS: Direct LDL Cholesterol 119.16 mg/dL (100-129)
[2023-08-23 18:47] LABS: 25-OH Vitamin D, Total 23.7 ng/mL (30-100)
[2023-08-23 19:02] LABS: Thyroid Stimulating Hormone 1.47 uIU/mL (0.465-4.68)
[2023-08-23 19:06] LABS: Ferritin 71.1 ng/ml (17.9-464)
[2023-08-23 19:21] LABS: Vitamin B12 425 pg/mL (239-931)
[2023-08-23 19:59] LABS: Iron 109 ug/dL (49-181)
[2023-08-23 20:09] LABS: Total Iron Binding Capacity 287 ug/dL (261-462)
== END 2023-08-23 23:59 | disposition home or self-care (01) ==
LOC: LAB.DROPOF 08-27 09:35
PROVIDERS: PCP Student in an Organized Health Care Education/Training Program; Visit Provider Student in an Organized Health Care Education/Training Program
DX: Z13.21 Encounter for screening for nutritional disorder (principal); R40.0 Somnolence; R53.83 Other fatigue; E55.9 Vitamin D deficiency, unspecified; Z68.31 Body mass index [BMI] 31.0-31.9, adult
CPT/HCPCS: 80053; 80061; 82306; 82607; 82728; 83036; 83540; 83550; 84443; 85025

== ENCOUNTER 2023-09-17 16:30 | Emergency (ER) | payer MEDICAID, SELFPAY ==
[2023-09-17 16:45] VITALS: BP 122/73; PULSE 111; RESP 20; TEMP 37.1; O2SAT 97; BMI 29.6
--- NOTE | 2023-09-17 17:04 | EXP.UTC ---
Discharge Plan Disposition Patient Disposition: Home, Self-Care Condition: Good Prescriptions Prescriptions: New mupirocin 2 % ointment 1 applic topical TID Qty: 22 0RF No Action cholecalciferol (vitamin D3) 50 mcg (2,000 unit) capsule 50 mcg PO DAILY Qty: 90 0RF Referrals Follow up/Referrals: Maureen Castillo PA [Primary Care Provider] - See instructions Activity Restrictions/Add. Instructions Additional Instructions/Restrictions: Call Dr. Alcaraz's office tomorrow for follow up and to have ingrown nail removed. Clinical Impressions Clinical Impression: Ingrown toenail of right foot with infection Instructions Patient Instructions: DI for Ingrown Toenail, DI for Infected Ingrown Toenail Discharge ED Provider: Jacqui Christie [facility] General Stated complaint: Left great toe red ,swollen with drainage Mode of Arrival: Ambulatory Source of Information: Patient Limitations: No Limitations Time Seen by Provider: 09/17/23 17:03 Description of Symptoms (Recalled from Triage Doc. by RN): PATIENT C/O REDNESS AND DRAINAGE TO LEFT GREAT TOE HEENT Symptoms (Recalled from RN notes): No Resp Symptoms (Recalled from RN notes): No Skin Symptoms (Recalled from RN notes): Yes MS Symptoms (Recalled from RN notes): No Functional Status (Recalled from RN notes): WNL History of Present Illness Provider Complaint: Pt reports that he has had an ingrown toenail on his left foot for some time. He states that he had to leave his job as he could not walk around anymore. He reports that the toe is swollen, red, and has pus coming out the sides. He states that he got antibiotics for the toe along with cream to put on it, but it did not help. Related Data Previous Rx's Medication Instructions Recorded cholecalciferol (vitamin D3) 50 50 mcg PO DAILY #90 caps 08/27/23 mcg (2,000 unit) capsule mupirocin 2 % topical ointment 1 applic topical TID #22 grams 09/17/23 Allergies Allergy/AdvReac Type Severity Reaction Status Date / Time No Known Allergies Allergy Verified 08/23/23 13:15 Worker's Comp Is this a Worker's Comp case?: No [facility] Disclaimer: The information contained in this section may have been updated after the patient was seen, as this information can be updated by other users. Medical History Anxiety and depression Ingrowing toenail with infection Tobacco abuse Metatarsal fracture Atypical chest pain History of pneumothorax Lung collapse x 3 1 on left and 2x on right Surgical History History of lung surgery H/O tooth extraction Family History Mother Anemia Asthma Thyroid disorder Father Alcoholism Substance abuse Grandfather Cancer Coronary artery disease Diabetes Hypertension Social History (Updated 08/23/23 @ 13:17 by Waleska Nicolas) Smoking Status: Current every day smoker tobacco type: e-cigarettes years smoked: 10 alcohol intake: current alcohol intake frequency: a few times a month substance use type: denies use current occupational status: employed Travel in the last 8 weeks: None household members: family ROS Obtained: Yes All systems reviewed & no additional complaints except as documented Constitutional Constitutional: Reports system reviewed and no additional complaints, except as documented Eyes Eyes: Reports system reviewed and no additional complaints, except as documented ENT Ears, Nose, Mouth, and Throat: Reports system reviewed and no additional complaints, except as documented Cardiovascular Cardiovascular: Reports system reviewed and no additional complaints, except as documented Respiratory Respiratory: Reports system reviewed and no additional complaints, except as documented Gastrointestinal Gastrointestingal: Reports system reviewed and no additional complaints, except as documented Genitourinary Male Genitourinary: Reports system reviewed and no additional complaints, except as documented Musculoskeletal Musculoskeletal: Reports system reviewed and no additional complaints, except as documented Integumentary/Breasts Skin/Breast: Reports nail changes, Reports redness and Reports sores Neurologic Neurologic: Reports system reviewed and no additional complaints, except as documented Endocrine Endocrine: Reports system reviewed and no additional complaints, except as documented Hematologic/Lymphatic Henatologic/Lymphatic: Reports system reviewed and no additional complaints, except as documented Allergic/Immunologic Allergic/Immunologic: Reports system reviewed and no additional complaints, except as documented Physical Exam General General appearance: alert and in no apparent distress Head Head exam: atraumatic Eye Eye exam: Present normal appearance ENT ENT exam: Present normal exam and normal oropharynx Neck Neck exam: Present normal inspection Chest Chest inspection: Present normal inspection and symmetric chest wall rise Respiratory Respiratory exam: Present normal lung sounds bilaterally Cardiovascular Cardiovascular exam: Present regular rate and normal rhythm Abdominal Exam Abdominal exam: Present soft and normal bowel sounds Extremities Exam Extremities exam: Present tenderness Expanded Lower Extremity Exam Left: Hip/Pelvis exam: Present normal inspection Upper leg exam: Present normal inspection Knee exam: Present normal inspection Lower leg exam: Present normal inspection Ankle exam: Present normal inspection Foot/toe exam: Present tenderness, swelling, erythema and other (left great toe with pus on either side of toenail.) Neurovascular/Tendon exam: Present normal capillary refill Gait: observed and normal Back Exam Back exam: Present normal inspection Neurological Exam Neurological exam: Present alert and oriented X3 Psychiatric Psychiatric exam: Present normal affect and normal mood Skin Skin exam: Present warm, dry and intact Lymphatic Lymphatic Findings: no adenopathy Medical Decision Making Reid Inquiry Pt receiving controlled substance: No Reid was queried for this patient: No Vital Signs: 09/17/23 16:45 Temperature 98.8 F Temperature Source Oral Pulse Rate [Left Brachial] 111 H Respiratory Rate 20 Blood Pressure [Left Arm] 122/73 Blood Pressure Mean [Left Arm] 89 Blood Pressure Source [Left Arm] Automatic Cuff Blood Pressure Position [Left Arm] Sitting 02 Sat by Pulse Oximetry 97 Oxygen Delivery Method Room Air Procedures Miscellaneous Procedure Procedure Performed: right foot soaked in chlorhexadine soap and warm water. The great toe was cleaned extensively and then rinsed with sterile water. Piece of cotton ball placed between toe nail and skin. Pt tolerated well.
[2023-09-17 18:18] VITALS: BP 122/73; PULSE 111; RESP 20; TEMP 37.1; O2SAT 97
== END 2023-09-17 18:20 | disposition home or self-care (01) ==
PROVIDERS: Emergency Provider Nurse Practitioner Family; PCP Student in an Organized Health Care Education/Training Program
DX: L60.0 Ingrowing nail (principal); M79.675 Pain in left toe(s); L08.9 Local infection of the skin and subcutaneous tissue, unspecified; F17.290 Nicotine dependence, other tobacco product, uncomplicated
CPT/HCPCS: 99212; 99214; G0463

== ENCOUNTER 2023-09-26 08:58 | Outpatient (CLI) | payer MEDICAID, SELFPAY | END 2023-09-26 23:59 | disposition home or self-care (01) | LOC: LAB.DROPOF 09-27 08:59 | PROVIDERS: PCP Nurse Practitioner; Visit Provider Nurse Practitioner | DX: L60.0 Ingrowing nail (principal); F17.290 Nicotine dependence, other tobacco product, uncomplicated; S92.322G Displaced fracture of second metatarsal bone, left foot, subsequent encounter for fracture with delayed healing | CPT/HCPCS: 87070; 87077; 87186; 87205 ==